=== PATIENT | female | born 1950 | race American Indian/Alaskan Native ===

== ENCOUNTER 2018-12-10 12:10 | Day surgery (SDC) | payer MEDICARE ==
[2018-12-10] MEDS ORDERED: D50W (25GM) Syringe IV ONE (13:42)
[2018-12-10] MEDS ORDERED: NACL 0.9% 1000 ML 1,000 ML IV SCH (14:00)
[2018-12-10] MEDS ORDERED: DIPRIVAN 10 MG/ML IV ONE (14:10)
--- NOTE | 2018-12-10 14:42 | Operative Report ---
Operative Report Operative Report: Procedure: Esophagogastroduodenoscopy with multiple mucosal biopsies Attending physician: Tavares Guzman MD Valve Maker: Tavares Guzman MD Indication: Patient is a 68-year-old male who presented with a history of dysphagia, heartburn and indigestion and epigastric pain. An upper endoscopy is done to assess patient so that treatment may be directed based on the findings. Consent: Informed consent was obtained after advising the patient and family regarding nature of this procedure, its indications, potential benefits as well as possible complications including but not limited to bleeding perforation and adverse reaction to medication, infection as well as other cardiopulmonary complications. An informed written and verbal consent was then obtained after due opportunity was provided for questions and answers. Monitoring: Patient was monitored continuously with pulse oximetry and electrocardiographic recordings as well as blood pressure recordings. Vital signs remained stable throughout this procedure with no untoward events. Preoperative assessment: Patient was assessed immediately prior to this procedure for capacity to tolerate monitored anesthesia care and moderate sedation as well as general anesthesia. Patient's ASA classification is 2, Mallampati class is 2, Hyomental distance is 3. Instrument: [employer] video endoscope Medications: Propofol given intravenously in divided doses. For details please refer to anesthesia records. Description of procedure: Patient was placed in the left lateral decubitus position after achieving sedation, the endoscope was introduced into the esophagus under direct vision. It was then advanced beyond the esophagus into the stomach and then beyond the stomach into the duodenum and to the second portion of the duodenum. It was subsequently withdrawn with careful inspection of all mucosal surfaces with the following findings. Findings: Z line was irregular at 38 cm. There was a diminutive hiatal hernia seen on entering into the stomach. There was mild gastric antral erythema with surrounding erosions. Biopsies of the antrum were obtained for histopathology, to rule out microscopic disease. The duodenum was normal to second portion. Impression: Irregular Z line Gastric antral erythema with erosions Diminutive hiatal hernia Plan: Follow pathology report. Direct additional treatment based on the pathology report.
--- NOTE | 2018-12-10 14:42 | Discharge Summary ---
Short Stay Discharge Plan Activity: advance as tolerated Weight Bearing Status: Weight Bear as Tolerated Diet: regular Follow up with: JESSICA MEYER NP [Primary Care Provider] - 7 Days
[2018-12-10 15:41] VITALS: BP 133/73
[2018-12-10] MEDS ORDERED: NACL 0.9% 1000 ML 1,000 ML ONE (15:49)
== END 2018-12-10 15:41 | disposition home or self-care (01) ==
LOC: GIO 12:10
PROVIDERS: ATTEND Internal Medicine Gastroenterology
DX: K30 Functional dyspepsia (principal); K25.9 Gastric ulcer, unspecified as acute or chronic, without hemorrhage or perforation; K21.9 Gastro-esophageal reflux disease without esophagitis; K44.9 Diaphragmatic hernia without obstruction or gangrene; R13.10 Dysphagia, unspecified; E78.00 Pure hypercholesterolemia, unspecified; I10 Essential (primary) hypertension; Z79.899 Other long term (current) drug therapy; Z79.01 Long term (current) use of anticoagulants; J45.909 Unspecified asthma, uncomplicated; Z90.710 Acquired absence of both cervix and uterus; Z98.890 Other specified postprocedural states
CPT/HCPCS: 43239; 82962; 88305; 88342; J2704; J7030

== ENCOUNTER 2018-12-13 09:52 | Day surgery (SDC) | payer MEDICARE ==
[~2018-12-13 09:52] MED LIST: NACL 0.9% 1000 ML 1,000 ML IV SCH
--- NOTE | 2018-12-13 11:53 | Anesthesia Day of Surgery ---
Anesthesia Day of Surgery - Day of Surgery Patient Examined: Yes Patient H&P Reviewed: Yes Patient is NPO: Yes
--- NOTE | 2018-12-13 11:54 | Anesthesia Consultation ---
Anesthesia Consult and Med Hx Date of service: 12/13/18 - Airway Anesthetic Teeth Evaluation: Good ROM Head & Neck: Adequate Mental/Hyoid Distance: Adequate Mallampati Class: Class II Intubation Access Assessment: Probably Good - Pre-Operative Health Status ASA Pre-Surgery Classification: ASA3 Proposed Anesthetic Plan: MAC - Pulmonary Hx Asthma: Yes - Cardiovascular System Hx Hypertension: Yes - Central Nervous System Hx Back Pain: Yes - Gastrointestinal Hx Gastroesophageal Reflux Disease: Yes - Endocrine Hx Non-Insulin Dependent Diabetes: Yes - Other Systems Hx Obesity: Yes (BMI 39.9)
[2018-12-13] MEDS ORDERED: DIPRIVAN 10 MG/ML IV ONE (14:47)
[2018-12-13] MEDS ORDERED: WATER FOR IRRIG STERILE IR ONE (14:48)
--- NOTE | 2018-12-13 15:08 | Discharge Summary ---
Short Stay Discharge Plan Activity: advance as tolerated Weight Bearing Status: Weight Bear as Tolerated Diet: regular Follow up with: JESSICA MEYER NP [Primary Care Provider] - 7 Days
--- NOTE | 2018-12-13 15:08 | Operative Report ---
Operative Report Operative Report: Procedure: Colonoscopy. Attending physician: Tavares Guzman MD Soft Boarder: Tavares Guzman MD Indication: Patient is a 68-year-old female who presents for colonoscopy for colorectal cancer screening. A colonoscopy serves to evaluate patient so that treatment may be directed based on the findings. Consent: Informed consent was obtained after advising the patient and family regarding nature of this procedure, its indications, potential benefits as well as possible complications including but not limited to bleeding perforation and adverse reaction to medication, infection as well as other cardiopulmonary complications. An informed written and verbal consent was then obtained after due opportunity was provided for questions and answers. Monitoring: Patient was monitored continuously with pulse oximetry and electrocardiographic recordings as well as blood pressure recordings. Vital signs remained stable throughout this procedure with no untoward events. Preoperative assessment: Patient was assessed immediately prior to this procedure for capacity to tolerate monitored anesthesia care and moderate sedation as well as general anesthesia. Patient's ASA classification is 2, Mallampati class is 2, Hyomental distance is 3. Instrument: [employer] video colonoscope Medications: Propofol given intravenously in divided doses. For details please refer to anesthesia records. Description of procedure: Patient was placed in the left lateral decubitus position after achieving sedation, a digital rectal examination was performed following which the colonoscope was introduced into the anal verge and advanced to the cecum which was identified by the ileocecal valve, the appendiceal orifice, as well as by the cecal strap and direct transillumination. The colonoscope was subsequently withdrawn with careful inspection of all mucosal surfaces. Patient tolerated this procedure well and was subsequently taken to the recovery room. The following findings were noted. Findings: The entirety of the colon to the cecum was normal. On the retroflex view at the anal verge, patient had internal hemorrhoids . Impression: Normal colonoscopy. Internal hemorrhoids. Plan: High-fiber diet. Prn stool softeners. Repeat colonoscopy in 10 years.
[2018-12-13 15:55] VITALS: BP 142/73
== END 2018-12-13 09:53 | disposition home or self-care (01) ==
LOC: GIO 09:52
PROVIDERS: ATTEND Internal Medicine Gastroenterology
DX: Z12.11 Encounter for screening for malignant neoplasm of colon (principal); K64.8 Other hemorrhoids; I10 Essential (primary) hypertension; E11.9 Type 2 diabetes mellitus without complications; E66.9 Obesity, unspecified; E78.00 Pure hypercholesterolemia, unspecified; J45.909 Unspecified asthma, uncomplicated; K21.9 Gastro-esophageal reflux disease without esophagitis; Z90.710 Acquired absence of both cervix and uterus; Z98.890 Other specified postprocedural states; Z68.39 Body mass index [BMI] 39.0-39.9, adult
CPT/HCPCS: 45378; 82962; J2704; J7030